=== PATIENT | female | born 1940 | race Caucasian/White ===

== ENCOUNTER → 2017-03-19 | Outpatient (CLI) | payer OTHER ==
[~2017-03-19] MED LIST: ALBUTEROL2.5 MG/0.1 INH; ALBUTEROL2.5 MG/31 INH; ASPIR 8181 MG PO; BENADRYL25 MG PO; LYRICA 75 MG CA75 MG PO; MAXZIDE-25 MG1 EACH PO; NORCO 10-325 T1 EACH PO; STOOL SOFTENER100 MG PO; VERAPAMIL ER120 M1 PO
--- NOTE | ~2017-03-19 | EKG ---
[address] [address] ELECTROCARDIOGRAM REPORT Name: WILMAR WARREN [facility] [id number] Admission: 03/19/17 Attend Phys: Tim Perez MD Discharge: Date of : 42 Report #: [id number] THIS REPORT FOR: //name// [facility] [place] [place] Test Date: 2017-03-19 Test Time: 13:43:15 Pat Name: WILMAR WARREN Department: Room: Gender: F Special Events Director[facility] 1940 Requested By: Tim Perez Order Number: [id number] MD: Jaron Gonzalez Measurements Intervals Bastian Rate: 60 P: 77 MN: 157 QRS: 80 QRSD: 100 T: 53 QT: 456 QTc: 456 Interpretive Statements Sinus rhythm Atrial premature complex No previous ECG available for comparison Electronically Signed On 03-20-2017 6:55:02 CDT by Jaron Gonzalez [email or web address] <ELECTRONICALLY SIGNED> By: Jaron Gonzalez MD, [facility] 03/20/17 0655 1343 1343 Jaron Gonzalez MD, FACC /EPI
== END ==
LOC: RAD 10:42
DX: C44.321 Squamous cell carcinoma of skin of nose (principal); M95.0 Acquired deformity of nose; I49.1 Atrial premature depolarization

== ENCOUNTER 2017-03-22 05:35 | Day surgery (SDC) | payer OTHER ==
[~2017-03-22] VITALS: Ht 149.9 cm; Wt 51.4 kg
--- NOTE | ~2017-03-22 | O ---
[facility] [place] [address] [address] OPERATIVE REPORT Name: WILMAR WARREN Room #: DEP [facility]..#: [id number] Admission: 03/22/17 Attend Phys: Tim Perez MD Discharge: 03/23/17 Date of : 42 Report #: [id number] THIS REPORT FOR: //name// CC: Jose Stevens MD [facility] physician/PCP Tim Perez DATE OF SERVICE: 03/22/2017 PREOPERATIVE DIAGNOSES: 1. Squamous cell carcinoma, nasal tip. 2. Mohs defect, status post partial rhinectomy. POSTOPERATIVE DIAGNOSES: 1. Squamous cell carcinoma, nasal tip. 2. Mohs defect, status post partial rhinectomy. OPERATION PERFORMED: 1. Midline forehead flap reconstruction, nasal dorsum and tip. 2. Reexcision of squamous cell carcinoma with partial rhinectomy for margin clearance including nasal septum and lower lateral cartilages. 3. Excision of malignant lesion, left forehead 2 cm; complex multilayer closure 2 cm, left forehead. SURGEON: Tim Perez MD ANESTHESIA: General endotracheal. 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 She was referred by her Mohs sheet combining operator, Dr. 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 The patient had 4 stages of Mohs surgery, but became very uncomfortable and the procedure had to be aborted. She was referred for margin clearance under general anesthesia with further rhinectomy and reconstruction. I had discussed with her a midline forehead flap. In addition, she brings up a lesion on her left forehead that has been present and growing. Recommendations were made for excisional biopsy. DESCRIPTION OF PROCEDURE: The patient was brought to the operating room, placed supine on the operating table. After adequate general anesthesia was achieved via endotracheal intubation, she was turned to 180 degrees. The skin was prepped with Betadine and she was draped in a sterile fashion. The wound and fibrinous debris from the previous excision was cleaned, so that this could be further examined . Photos were taken to document. She was injected with 1% [facility] [address] [place] [address] OPERATIVE REPORT Name: WILMAR WARREN Room #: DEP [facility].#: [id number] Admission: 03/22/17 Attend Phys: Tim Perez MD Discharge: 03/23/17 Date of : 42 Report #: [id number] Xylocaine with 1:100,000 epinephrine, prepped and draped in a sterile fashion. Procedure began first with clearance of the margins around the skin. These skin margins 1 mm were taken in a clockwise fashion, 12-3, 3-6, 6-9 and 9-12 o'clock. Deep biopsies were also taken excising a portion of the right lower lateral cartilage of the nasal septum and nasal septal mucosa and of the left lower lateral cartilage. The true margin on these biopsies, all were negative for carcinoma. At this point, a template was created out of a foil suture package and Doppler was used to identify the supratrochlear artery on the right. This was then drawn as a 1 cm flap superiorly to the hairline. The careful rotation was measured to be sure that this would fill the defect and the foil template was used at the distal end to design the paddle of skin for closure. This was then injected with 1% Xylocaine with 1:100,000 epinephrine and then reconfirmed with the Doppler. Incision was made with a 15-blade down through to the subcutaneous tissue and extended superiorly. The superior portion of the flap where the foil template is made, was thin naturally and this was taken down to the pericranium. Dissection was then done inferiorly external to the pericranium. About 2 cm superior to the supratrochlear artery, the periosteum was incised and a subperiosteal incision was then made for the remainder of the flap down to the suprabrow. Care was taken to be sure that the artery was not compromised. Once this was adequately elevated, it was rotated into the defect and fit with no tension. While waiting for margins to be done, the midline forehead was then widely undermined and closed with interrupted 4-0 Vicryl deep dermal sutures and 5-0 nylon as well as bhargavi. The patient's lesion on the left forehead hairline was then excised, this measured 2 cm and did return as a squamous proliferative lesion, final diagnosis deferred to permanent section, but margins were widely free. This was then widely undermined and closed as much as possible with this very thin skin. The center portion was closed with interrupted 4-0 Vicryl deep dermal sutures as well as bhargavi on skin. The center portion could not be closed and was left to heal by secondary intention. Surgicel was placed in the defect followed by Steri-Strips. Once the margins were cleared, the forehead flap was then inset into the defect. This was closed with a combination of interrupted 5-0 Vicryl deep dermal sutures and 6-0 nylon on skin. Complete closure was made for 270 degrees around the perimeter except for the portion connected to the flap. The plan will be to leave this in place to heal for at least 4 weeks. Once I am sure that the graft has re-achieved the blood supply, the forehead flap will be divided and re-inset into the forehead. Surgicel was placed on the raw surface of the flap to prevent bleeding and a small amount of Xeroform was placed into the defect. Mastisol and Steri-Strips were then applied. The patient was then returned to anesthesia, awakened without difficulty, and returned to recovery in good condition. Sponge and needle counts were correct. There were no complications. Blood loss was about 50 mL. The patient will be watched overnight because of her living a distance away and because of age and presuming that she does well, will be discharged to home in the morning. Written and verbal discharge [facility] [address] [place] [address] OPERATIVE REPORT Name: WILMAR WARREN Room #: DEP [facility]..#: [id number] Admission: 03/22/17 Attend Phys: Tim Perez MD Discharge: 03/23/17 Date of : 42 Report #: [id number] instructions and emergency precautions have been given to the patient and her daughter. DISCHARGE MEDICATIONS: Include Augmentin 875 b.i.d. for 10 days, hydrocodone/acetaminophen 7.5/325 one to two q.4-6 hours p.r.n. and Phenergan suppository 25 mg 1 per rectum q.4-6 hours p.r.n. She is instructed on light activity and a soft diet. The patient is on tube feeding. <ELECTRONICALLY SIGNED> By: Tim Perez MD 03/25/17 1855 1630 1749 Tim Perez MD /nt
--- NOTE | ~2017-03-22 | S ---
[facility] [address] [place] [address] SURGICAL PATH RPT PROCEDURE Name: HAWA STOVER Room #: DEP [facility]..#: [id number] Admission: 03/22/17 Date of : 42 Discharge: 03/23/17 Report #: [id number] Path Case #: [id number] PATHOLOGY REPORT COLLECTION DATE: 03/22/2017 RECEIVED DATE: 03/23/2017 SUBMITTING PHYS: Dr. Tim Peerz OTHER PHYS: SPECIMEN(S) RECEIVED: A.9 and 12 margin B.6 and 9 margin C.Right lower lateral cartilage and mucosa D.3 and 6 margin E.3 and 12 margin F.Left lower lateral cartilage and deep tissue G.Nasal septum cartilage and mucosa H.Left forehead mass, short suture at 6:00 * * * * * * * * * * * * FINAL DIAGNOSIS: A. Skin, 9-12:00, re-excision: - Surface ulceration adjacent to reactive pseudoepitheliomatous changes, status post prior surgery. - No definite malignancy identified. B. Skin, 6-9:00 margin, re-excision: - Reparative changes adjacent to reactive pseudoepitheliomatous changes, status post prior surgery. - No definite malignancy identified. C. Skin, right lower lateral cartilage and mucosa, re-excision: - Reparative changes adjacent to reactive pseudoepitheliomatous changes, status post prior surgery. - No definite malignancy identified. D. Skin, 3:00 and 6:00 margins, re-excision: - Reparative changes adjacent to reactive pseudoepitheliomatous changes, status post prior surgery. - No definite malignancy identified. E. Skin, 3:00 and 12:00 margin, re-excision: - Surface ulceration adjacent to reactive pseudoepitheliomatous changes, status post prior surgery. - No definite malignancy identified. F. Left lower lateral cartilage and deep tissue, re-excision: - Reparative changes along with reactive cartilage. - No definite malignancy identified. G. Nasal septum cartilage and mucosa, re-excision: - Reparative changes along with reactive cartilage. - No definite malignancy identified. [facility] [address] [place] [address] SURGICAL PATH RPT PROCEDURE Name: STOVERHAWA Room #: DEP [facility] [place]..#: [id number] Admission: 03/22/17 Date of : 42 Discharge: 03/23/17 Report #: [id number] Path Case #: [id number] H. Skin, left forehead mass, excision: - FOCAL SQUAMOUS CELL CARCINOMA IN-SITU ARISING IN A BACKGROUND OF HYPERKERATOTIC ACTINIC KERATOSIS. - Extensive solar elastosis and actinic keratosis in the background. - Negative for malignancy at margins. - Focal hyperkeratotic actinic keratosis present at the 12:00 tip. (IUV:csd; d/t: 03/25/2017) PATHOLOGIST: Nannette Ahuja M.D. REPORT ELECTRONICALLY SIGNED BY: Nannette Ahuja M.D. DATE/TIME: 03/25/2017 14:18 * * * * * * * * * * * * GROSS PATHOLOGY: A. The first specimen is received fresh from the OR labeled, "Stover, Hawa M. and 9 and 12". It consists of a linear portion of skin and subcutaneous tissue measuring 1.4 x 0.3 x 0.3 cm. It is inked blue. It is entirely submitted for one frozen section. The frozen section is then submitted as A1FS. B. The second specimen is received fresh from the OR labeled, "Stover, Hawa M. and 6 and 9". It consists of a linear portion of skin and subcutaneous tissue measuring 1.9 x 0.3 x 0.2 cm. It is inked black. It is entirely submitted for one frozen section. The frozen section is then submitted as B1FS. C. The third specimen is received fresh from the OR labeled, "Stover, Hawa M. and Right lower lateral cartilage and mucosa". It consists of irregular fragments of covarrubias-white mucosa and cartilage measuring 1.1 x 0.4 x 0.4 cm. It is inked green. It is entirely submitted for one frozen section. The frozen section is then submitted as C1FS. D. The fourth specimen is received fresh from the OR labeled, "Stover, Hawa M. and 3 and 6". It consists of a linear portion of skin and subcutaneous tissue measuring 1.5 x 0.2 x 0.2 cm. It is inked blue. It is entirely submitted for one frozen section. The frozen section is then submitted as D1FS. E. The fifth specimen is received fresh from the OR labeled, "Stover, Hawa M and 3 and 12". It consists of a linear portion of skin and subcutaneous tissue measuring 2.1 x 0.5 x 0.3 cm. It is inked black. It is entirely submitted for one frozen section. The frozen section is then submitted as E1FS. F. The sixth specimen is received fresh from the OR labeled, "Stover, Hawa M. and Left lower lateral cartilage and deep tissue". It consists of irregular fragments of covarrubias-white tissue measuring 0.9 x 0.4 x 0.4 cm. It is inked green. It is entirely submitted for one frozen section. The frozen section is then submitted as F1FS. G. The seventh specimen is received fresh from the OR labeled, "Stover, Hawa M. and Naval septum cartilage and mucosa". It consists of three fragments of irregularly shaped, covarrubias-white tissue measuring [facility] [address] [place] [address] SURGICAL PATH RPT PROCEDURE Name: HAWA STOVER Room #: DEP [facility].#: [id number] Admission: 03/22/17 Date of : 42 Discharge: 03/23/17 Report #: [id number] Path Case #: [id number] 1.6 x 0.4 x 0.4 cm, 0.8 x 0.4 x 0.4 cm, and 0.7 x 0.3 x 0.3 cm. It is entirely submitted for one frozen section. The frozen section is then submitted as G1FS. H. The eighth specimen is received fresh from the OR labeled, "Hawa Stover and Left forehead mass - short suture at 6:00". It consists of an oriented circular portion of skin and subcutaneous tissue measuring 2.0 x 1.5 cm. It is excised to a depth of a 0.3 cm. The suture is at 6:00. The margins are inked as follows: 12-3:00 - green, 3-6:00 - blue, and 6-9:00 - black. It is serially sectioned and entirely submitted for one frozen section. The frozen section is then submitted as H1FS. CW/db FROZEN SECTION DIAGNOSIS: A1FS. "9-12 margin": - Reparative and pseudoepitheliomatous changes. B1FS. "6-9 margin": - Reparative and pseudoepitheliomatous changes. C1FS. "Right lower lateral cartilage and mucosa": - Reparative and pseudoepitheliomatous changes. D1FS. "3-6 margin": - Reparative and pseudoepitheliomatous changes. E1FS. "3 and 12 margin": - Reparative changes, pseudoepitheliomatous changes with reactive atypical epithelium; cannot exclude focal dysplasia. F1FS. "Lower lateral cartilage and deep tissue": - Reparative and pseudoepitheliomatous changes. G1FS. "Nasal septum cartilage and mucosa": - Reparative and pseudoepitheliomatous changes. H1FS. "Left forehead mass": - Squamoproliferative lesion; margins free of invasive tumor. The case is discussed with Dr. Tim Perez in the operating room immediately following the frozen section diagnoses and written reports are placed in the patient's chart. Testing performed by [facility] at [address] [place] [address] CLINICAL HISTORY: Excision facial skin cancer. Mohs defect of nose and squamous cell carcinoma tip of nose. INITIAL CPT CODE(S): A; 74701, 16613 B; 48421, 86958 C; 53327, 01090 D; 18913, 55421 E; 33288, [address] [address] SURGICAL PATH RPT PROCEDURE Name: HAWA STOVER [facility] [id number] Admission: 03/22/17 Date of : 42 Discharge: 03/23/17 Report #: [id number] Path Case #: [id number] F; 84830, 77834 G; 97467, 35497 H; [id number], 94650 Professional services performed by [facility] at [facility] [address], [place] [address] Technical services performed by [facility] at [address] [place] [address]. q [facility] [address] [place] [address] PHONE: [phone] DIRECTOR: Joni Sesay M.D. * * * END OF REPORT * * *
[2017-03-22 12:30] VITALS: BP 134/61
[2017-03-22] MEDS ORDERED: VENTOLIN HFA 1818 GM INH (13:43)
[2017-03-22 18:22] VITALS: BP 107/52
[2017-03-22 20:00] VITALS: BP 102/45
[2017-03-23] VITALS: BP 112/56
[2017-03-23 04:00] VITALS: BP 100/41
[2017-03-23 07:29] VITALS: BP 100/41
[2017-03-23 09:06] VITALS: BP 104/46
== END 2017-03-23 10:00 | disposition home or self-care (01) ==
LOC: TBA 05:35 → OR 05:35 → 4S 18:10 → OR 03-23 10:00
DX: C76.0 Malignant neoplasm of head, face and neck (principal); Z87.891 Personal history of nicotine dependence; J43.9 Emphysema, unspecified; J45.909 Unspecified asthma, uncomplicated; I10 Essential (primary) hypertension; G47.33 Obstructive sleep apnea (adult) (pediatric); Z90.49 Acquired absence of other specified parts of digestive tract
CPT/HCPCS: 50010; 50101; 50386; 50398; 51412; 56524; 56526; 56527; 56528; 56638; 56760; 57006; 62110; 62900; 70005

== ENCOUNTER 2017-04-24 06:18 | Day surgery (SDC) | payer OTHER ==
[~2017-04-24] VITALS: Ht 149.9 cm; Wt 50.8 kg
--- NOTE | ~2017-04-24 | O ---
[facility] [place] [address] OPERATIVE REPORT Name: WILMAR WARREN Room #: 150-5 [facility].#: [id number] Admission: 04/24/17 Attend Phys: Tim Perez MD Discharge: Date of : 42 Report #: [id number] THIS REPORT FOR: //name// CC: Jose Stevens MD [facility] physician/PCP Tim Perez DATE OF SERVICE: 04/24/2017 SURGEON: Tim Perez MD PREOPERATIVE DIAGNOSES: 1. Second stage forehead flap takedown. 2. History of midline forehead flap reconstruction, nasal dorsal defect on 03/22/2017. 3. Mohs defect of nose. 4. Squamous cell carcinoma, tip of nose. POSTOPERATIVE DIAGNOSES: 1. Second stage forehead flap takedown. 2. History of midline forehead flap reconstruction, nasal dorsal defect on 03/22/2017. 3. Mohs defect of nose. 4. Squamous cell carcinoma, tip of nose. OPERATION PERFORMED: Second stage takedown of forehead flap with reinsertion to forehead. INDICATIONS: The patient is a 76-year-old female who underwent a midline forehead flap for reconstruction of an extensive Mohs excision, nasal dorsum on 03/22/2017. The patient presents 4 weeks later recommendations for takedown. The patient has had an uncomplicated postoperative course. DESCRIPTION OF PROCEDURE: The procedure was done was brought to the operating room and placed supine on the operating table. After adequate general anesthesia was achieved via laryngeal mask anesthesia, she was turned 180 degrees. Planned incision was marked on the flap. Viability was assessed by pinching the flap with good blanching distally. It was injected with 1% Xylocaine with 1:100,000 epinephrine. The patient was then prepped with Betadine and draped in a sterile fashion. Procedure began with a division of the forehead flap, leaving the inset portion in the nasal dorsum. The portion from the right supratrochlear artery was then returned to the forehead. This had healed somewhat on the backside. This was then reopened and the edges were freshened for re-insetting it into the [address] [address] OPERATIVE REPORT Name: WILMAR WARREN Room #: 150-5 [facility]#: [id number] Admission: 04/24/17 Attend Phys: Tim Perez MD Discharge: Date of : 42 Report #: [id number] forehead. The incision was then reopened in the forehead, the graft was cleaned and the edges freshened. This was then replaced into the forehead and sutured in place with interrupted 5-0 Vicryl deep dermal sutures and 6-0 nylon on skin. This ended up a triangular reinsertion. Once this was done, attention was returned to the nasal dorsal reconstruction. The area that was to be inset was then defatted and the skin cut, so that it would matched perfectly with the superior portion of the nose. This was then inset into the nose and sutured in place with interrupted 6-0 nylon. ointment was applied to the nasal dorsum and then a quarter-inch Steri-Strips on the forehead. No drain was needed. The patient was then returned to anesthesia, awake without difficulty, returned to recovery in good condition. Sponge and needle counts were correct. There were no complications. Blood loss was about 20 mL. She will be watched until awake and stable and presumably if she does well, discharged to home with plans to follow with me in 1 week. Written and verbal discharge instructions and emergency precautions have been given to her daughter. DISCHARGE MEDICATIONS: Include Bactroban ointment Keflex 500 mg b.i.d. for 10 days, hydrocodone/acetaminophen 7.5/325 one to two q. 4-6 hours p.r.n., Phenergan suppository 25 mg 1 per rectum q.4-6 hours. She is instructed on light activity and soft diet. She is instructed on water precautions for the incisions. By: 1555 1719 Tim Perez MD /aissatou
[~2017-04-24 06:18] MED LIST changes: +KEFLEX500 MG PO; +VENTOLIN HFA 1818 GM INH
[2017-04-24 13:15] VITALS: BP 129/71
[2017-04-24 13:39] LABS: CALCIUM 9.2 mg/dL (8.5-10.1); CREATININE 0.7 mg/dL (0.6-1.0); POTASSIUM 3.1 mmol/L (3.5-5.1)
[2017-04-24] MEDS ORDERED: MUPIROCIN22 GM TOP (15:57)
[2017-04-24 16:07] VITALS: BP 129/71
== END 2017-04-24 17:22 | disposition home or self-care (01) ==
LOC: TBA 06:18 → OR 06:18
PROVIDERS: Otolaryngology Plastic Surgery within the Head & Neck
DX: C44.321 Squamous cell carcinoma of skin of nose (principal); L90.5 Scar conditions and fibrosis of skin; J45.909 Unspecified asthma, uncomplicated; J44.9 Chronic obstructive pulmonary disease, unspecified; M19.90 Unspecified osteoarthritis, unspecified site; Z87.891 Personal history of nicotine dependence; Z98.890 Other specified postprocedural states; Z90.49 Acquired absence of other specified parts of digestive tract
CPT/HCPCS: 50010; 50101; 50386; 50398; 51412; 56526; 56528; 57006; 62110; 62900; 70005

== ENCOUNTER → 2017-09-19 | Outpatient (CLI) | payer OTHER ==
[~2017-09-19] MED LIST changes: +MUPIROCIN22 GM TOP
[2017-09-19 12:49] LABS: CREATININE 0.6 mg/dL (0.6-1.0)
== END ==
LOC: CAT 10:10
PROVIDERS: Otolaryngology Plastic Surgery within the Head & Neck
DX: C44.321 Squamous cell carcinoma of skin of nose (principal)